=== PATIENT | male | born 1960 | race Caucasian/White ===

== ENCOUNTER → 2022-10-31 | Day surgery (SDC) | payer OTHER ==
[~2022-10-31] MED LIST: ACAI BERRY500 MG; ALBUTEROL SULFATE HFA 8GM INHALATION AEROSOL INH ONE; BUPIVACAINE 0.5%/EPI 30 ML SDV INJ ONE; CALCIUM,MAG,ZINC; DEXAMETHASONE SOD PHOS INJ 4 MG/ML SDV ONE; FAMOTIDINE 20 MG/2 ML VIAL IV ONE; FENTANYL CITRATE/PF 100MCG/2 ML INJ ONE; GLYCOPYRROLATE INJ 0.2 MG/ML VIAL ONE; HEMP OIL; KETOROLAC TROMETHAMINE 30 MG/ML VIAL ONE; LIDOCAINE HCL 2% JELLY 5 ML TUBE ONE; LIDOCAINE HCL 2% LOCAL INJ 5 ML SDV VIAL INJ ONE; MIDAZOLAM HCL 2 MG/2 ML VIAL ONE; Morphine 10mg syringe 10 MG/ML INJ ONE; NEOSTIGMINE 1 MG/ML 10ML VIAL ONE; ONDANSETRON HCL INJ 2MG/ML 2ML 2 MG/ML VIAL ONE; POVIDONE IODINE 0.05% 0.05 % ML PO ONE; PROPOFOL IV EMULSION 10 MG/ML 20 ML VIAL ONE; ROCURONIUM BROMIDE 10 MG/ML 5ML VIAL IV ONE; SEVOFLURANE INHAL SOLN 250 ML PEN BTL ONE; SUCCINYLCHOLINE CHLORIDE 20 MG/ML 10ML VIAL ONE; VITAMIN B122500 MCG; VITAMIN C1000 MG PO; VITAMIN C500 MG PO; [UNRECOGNIZED DRUG - OTHER]; [UNRECOGNIZED DRUG - REMARK]
[2022-10-31 13:20] VITALS: BP 136/90
== END | disposition home or self-care (01) ==
LOC: OR 08:50
PROVIDERS: ATTEND Surgery
DX: K42.0 Umbilical hernia with obstruction, without gangrene (principal); Z01.810 Encounter for preprocedural cardiovascular examination; Z01.818 Encounter for other preprocedural examination
CPT/HCPCS: 49594; 71046; 93005; C1781; J0330; J1100; J1885; J2001 ×2; J2405; J2704; J2710; J2250; J2270; J3010